=== PATIENT | female | born 1945 | race Caucasian/White ===

== ENCOUNTER 2017-07-09 10:50 | Outpatient (CLI) | payer MEDICARE, OTHER ==
--- NOTE | 2017-07-10 14:50 | Mammography Report ---
DIGITAL SCREENING MAMMOGRAM: 07/09/2017 INDICATION: A 71-year-old for screening. COMPARISON: 05/2013, 07/2010. TECHNIQUE: Routine CC and MLO projections were obtained of the breasts. FINDINGS: The breasts demonstrate scattered fibroglandular densities bilaterally. Coarse and punctate, typically benign calcifications are present. No suspicious masses, clustered microcalcifications, or regions of architectural distortion are identified. IMPRESSION: BENIGN FINDINGS. RECOMMENDATION: Routine annual screening unless otherwise clinically indicated. BIRADS CATEGORY - 2 benign findings. STANDARD QUALIFYING STATEMENTS: 1. This examination was reviewed with the aid of Computer-Aided Detection (CAD). 2. A negative or benign imaging report should not delay biopsy if clinically suspicious findings are present. Consider surgical consultation if warranted. More than 5% of cancers are not identified by imaging. 3. Dense breasts may obscure an underlying neoplasm. TD: 07/10/2017 14:50
== END 2017-07-09 10:51 | disposition home or self-care (01) ==
LOC: DI.N 10:50
PROVIDERS: ATTEND Internal Medicine
DX: Z12.31 Encounter for screening mammogram for malignant neoplasm of breast (principal)
CPT/HCPCS: 77067

== ENCOUNTER 2017-11-10 18:47 | Emergency (ER) | payer MEDICARE, OTHER ==
[2017-11-10] MEDS ORDERED: IPRATROPIUM/ALBUTEROL 3 ML NEB INH STA (19:16)
--- NOTE | 2017-11-10 19:22 | ED Physician Documentation ---
PD HPI URI - Stated complaint Stated Complaint: COUGH - Chief complaint Chief Complaint: Resp - History obtained from History obtained from: Patient - History of Present Illness Timing - onset: How many days ago (5) Timing duration: Days (5) Timing details: Gradual onset Pain level max: 4 Pain level now: 4 Associated symptoms: Nasal congestion, Rhinorrhea, Dry cough, Dyspnea. No: Fever, Chills, Sinus pain, Sore throat, Swollen nodes Contributing factors: Sick contact Improves by: Rest, MDI/nebulizer (She states that she was given a nebulizer treatment in the urgent care but not sent home with an inhaler. She states that it did help) Worsened by: Activity, Breathing Recently seen: Other (Walk-in clinic and given Tessalon and Mucinex) Review of Systems Constitutional: denies: Fever, Chills Nose: reports: Rhinorrhea / runny nose, Congestion Cardiac: denies: Chest pain / pressure Respiratory: reports: Dyspnea, Cough, Wheezing GI: denies: Abdominal Pain, Nausea, Vomiting, Diarrhea Skin: denies: Rash PD PAST MEDICAL HISTORY - Past Medical History Past Medical History: Yes Cardiovascular: Hypertension Endocrine/Autoimmune: Type 2 diabetes - Past Surgical History Past Surgical History: No - Present Medications Home Medications: Ambulatory Orders Medication Instructions Recorded Confirmed Albuterol Sulf [Ventolin Hfa 1 - 2 puffs INH Q4HR PRN #1 inhaler 11/10/17 Inhaler] Benzonatate [Tessalon Perle] 11/10/17 Benzonatate [Tessalon Perle] 100 - 200 mg PO TID PRN #30 capsule 11/10/17 Cetirizine HCl/Pseudoephedrine 1 each PO BID PRN #30 tab.er.12h 11/10/17 [Zyrtec-D Tablet] Levothyroxine [Synthroid] 11/10/17 Lisinopril 11/10/17 11/10/17 Simvastatin 11/10/17 metFORMIN [Glucophage] 11/10/17 - Allergies Allergies/Adverse Reactions: Allergies Allergy/AdvReac Type Severity Reaction Status Date / Time No Known Drug Allergies Allergy Verified 11/10/17 18:55 - Living Situation Living Situation: reports: With family Living Arrangement: reports: At home - Social History Does the pt smoke?: No Does the pt have substance abuse?: No PD ED PE NORMAL - Vitals Vital signs reviewed: Yes - General General: Alert and oriented X 3, No acute distress, Well developed/nourished - HEENT HEENT: PERRL, Ears normal, Moist mucous membranes, Pharynx benign - Neck Neck: Supple, no meningeal sign - Cardiac Cardiac: RRR - Respiratory Respiratory: No respiratory distress, Other (Mild diminished breath sounds bilaterally, occasional wheeze) - Abdomen Abdomen: Soft, Non tender, Non distended - Derm Derm: Warm and dry, No rash - Extremities Extremities: No edema, No calf tenderness / cord - Neuro Neuro: Alert and oriented X 3 - Psych Psych: Normal mood, Normal affect Results - Vitals Vitals: Vital Signs - 24 hr 11/10/17 11/10/17 11/10/17 18:53 19:35 20:15 Temperature 36 C L 36.8 C Heart Rate 97 78 76 Respiratory 18 20 17 Rate Blood Pressure 178/72 H 148/67 H O2 Saturation 96 100 Oxygen O2 Source Room air PD MEDICAL DECISION MAKING - ED course Complexity details: re-evaluated patient, considered differential, d/w patient ED course: Patient is a 72-year-old female who presents to the emergency room with what appears to be a viral upper respiratory infection with wheezing. No evidence of pneumonia. No fever. No hypoxia. Feels better after nebulizer treatment. Will prescribe an inhaler for home. We will continue supportive care and follow -up closely with her doctor. Patient is very well-appearing, nontoxic. Patient counseled regarding signs and symptoms for which I believe and urgent re -evaluation would be necessary. Patient with good understanding of and agreement to plan and is comfortable going home at this time This document was made in part using voice recognition software. While efforts are made to proofread this document, sound alike and grammatical errors may occur. - Sepsis Event Vital Signs: Vital Signs - 24 hr 11/10/17 11/10/17 11/10/17 18:53 19:35 20:15 Temperature 36 C L 36.8 C Heart Rate 97 78 76 Respiratory 18 20 17 Rate Blood Pressure 178/72 H 148/67 H O2 Saturation 96 100 Oxygen O2 Source Room air Departure - Departure Disposition: 01 Home, Self Care Clinical Impression: Upper respiratory tract infection Qualifiers: URI type: unspecified viral URI Qualified Code(s): J06.9 - Acute upper respiratory infection, unspecified Condition: Good Instructions: ED URI Viral W Wheezing Follow-Up: Hang Fraire MD [Primary Care Provider] - Prescriptions: Albuterol Sulf [Ventolin Hfa Inhaler] 1 - 2 puffs INH Q4HR PRN #1 inhaler PRN Reason: Shortness Of Air/Wheezing Benzonatate [Tessalon Perle] 100 - 200 mg PO TID PRN #30 capsule PRN Reason: Cough Cetirizine HCl/Pseudoephedrine [Zyrtec-D Tablet] 1 each PO BID PRN #30 tab.er.12h PRN Reason: Nasal Congestion Comments: Return if you worsen. Use the inhaler as needed for the cough and difficulty breathing. Discharge Date/Time: 11/10/17 20:15
[2017-11-10 20:19] VITALS: BP 148/67
== END 2017-11-10 20:15 | disposition home or self-care (01) ==
LOC: ED 18:47
DX: J06.9 Acute upper respiratory infection, unspecified (principal); I10 Essential (primary) hypertension; E11.9 Type 2 diabetes mellitus without complications; Z79.84 Long term (current) use of oral hypoglycemic drugs
CPT/HCPCS: 94640; 94664; 99283

== ENCOUNTER 2023-02-08 12:23 | Emergency (ER) | payer MEDICARE, OTHER ==
[2023-02-08 12:58] VITALS: BP 183/89; O2SAT 96
[2023-02-08] MEDS ORDERED: TETANUS/DIPHTHERIA/PERTUSSIS 0.5 ML SYRINGE IM ONE (14:13)
[2023-02-08] MEDS ORDERED: AMOX/CLAV 875 MG/125 MG TABLET PO STA (14:13)
--- NOTE | 2023-02-08 14:15 | ED Physician Documentation ---
PD HPI UPPER EXT INJURY - Stated complaint Stated Complaint: RT HAND INJ - Chief complaint Chief Complaint: Ext Problem - History obtained from History obtained from: Patient (77-year-old woman with unknown tetanus status was scratched on the right hand by her cat today. Pain is mild. 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, Hysterectomy, Oophrectomy HEENT: Tonsil/Adenoidectomy - Present Medications Home Medications: Ambulatory Orders Medication Instructions Recorded Confirmed Albuterol Sulf [Ventolin Hfa 1 - 2 puffs INH Q4HR PRN #1 inhaler 11/10/17 Inhaler] Benzonatate [Tessalon Perle] 11/10/17 Benzonatate [Tessalon Perle] 100 - 200 mg PO TID PRN #30 capsule 11/10/17 Cetirizine HCl/Pseudoephedrine 1 each PO BID PRN #30 tab.er.12h 11/10/17 [Zyrtec-D Tablet] Levothyroxine [Synthroid] 11/10/17 Simvastatin 11/10/17 lisinopriL [Lisinopril] 11/10/17 11/10/17 metFORMIN [Glucophage] 11/10/17 Amox/Clav 875/125 [Augmentin] 1 each PO Q12H #6 tablet 02/08/23 - Allergies Allergies/Adverse Reactions: Allergies Allergy/AdvReac Type Severity Reaction Status Date / Time No Known Drug Allergies Allergy Verified 11/10/17 18:55 - Social History Does the pt smoke?: No Smoking Status: Never smoker Does the pt drink ETOH?: Yes Does the pt have substance abuse?: No - Immunizations Immunizations are current?: No Immunizations: TDAP >10years/unknown - POLST Patient has POLST: No PD ED PE NORMAL - Vitals Vital signs reviewed: Yes - General General: Alert and oriented X 3, No acute distress - Extremities Extremities: Other (On the right hand there is a shallow 1 cm laceration over the first metacarpal dorsally without distal neurovascular compromise.) - Neuro Neuro: Alert and oriented X 3, Normal speech Results - Vitals Vitals: Vital Signs - 24 hr 02/08/23 12:40 Temperature 36.7 C Heart Rate 67 Respiratory 16 Rate Blood Pressure 183/89 H O2 Saturation 96 Oxygen O2 Source Room air Procedures - Laceration (location) Right hand Length in cm: 1 Wound type: Curved, Superficial Neurovascular status: Sensory intact, Motor intact Wound preparation: Irrigated copiously NS Skin layer closure: Steri strips Other: Tetanus booster given Departure - Departure Disposition: Home, Self Care Clinical Impression: Cat scratch Condition: Good Record reviewed to determine appropriate education?: Yes Instructions: ED Bite Cat Prescriptions: Amox/Clav 875/125 [Augmentin] 1 each PO Q12H #6 tablet Comments: note for your records that you received a tetanus shot today. Return for signs or symptoms of infection such as redness, swelling, drainage, increased pain, or fever.
== END 2023-02-08 14:57 | disposition home or self-care (01) ==
LOC: ED 12:23
DX: S61.411A Laceration without foreign body of right hand, initial encounter (principal); W55.03XA Scratched by cat, initial encounter
CPT/HCPCS: 90471; 90715; 99283; A9270